=== PATIENT | female | born 1955 | race Caucasian/White ===

== ENCOUNTER 2018-11-30 00:02 | Day surgery (SDC) | payer BC, OTHER ==
[~2018-11-30 00:02] MED LIST: HYDR1TAB94 PO; IBUP600 PO; MORPHINE 11000 MG/10 IV; ONDA4ODT PO; Prilosec Otc20 MG PO; VITAMIN D10000 UNIT PO
== END 2018-11-30 09:35 | disposition home or self-care (01) ==
LOC: ATC 00:02
DX: R42 Dizziness and giddiness (principal)
CPT/HCPCS: 36415; 80400; 82533; 96372; J0834

== ENCOUNTER → 2019-10-02 | Outpatient (CLI) | payer MEDICARE | END | disposition home or self-care (01) | LOC: LAB SHORT 06:15 → OLS 06:15 → LAB FUT 09-20 10:15 → EDSTATUS 09-20 10:15 | DX: N20.2 Calculus of kidney with calculus of ureter (principal) | CPT/HCPCS: 81050 ==

== ENCOUNTER → 2020-08-24 | Outpatient (CLI) | payer MEDICARE, OTHER | END | disposition home or self-care (01) | LOC: LAB SHORT 10:10 → LAB 10:10 | DX: N39.0 Urinary tract infection, site not specified (principal) | CPT/HCPCS: 87086 ==

== ENCOUNTER → 2021-01-21 | Outpatient (CLI) | payer MEDICARE, OTHER | END | disposition home or self-care (01) | LOC: LAB SHORT 09:11 | DX: N39.0 Urinary tract infection, site not specified (principal) | CPT/HCPCS: 87086 ==

== ENCOUNTER 2023-03-23 07:46 | Day surgery (SDC) | payer MEDICARE, OTHER ==
[~2023-03-23] VITALS: Ht 162.6 cm; Wt 104.9 kg
[~2023-03-23 07:46] MED LIST changes: +ARMOUR THYROID90 M1 PO; +Aspir 8181 MG PO; +LIVALO2 MG PO; +PSEUDOEPHEDRINE30 M1 PO
--- NOTE | 2023-03-23 08:41 | NUR ---
03/23/23 0841 Jose Vargas CALL LIGHT WITHIN REACH. TETRACAINE IN LEFT EYE AT 0835 AND JIM GAYLET 0836
[2023-03-23 09:58] VITALS: BP 144/69
--- NOTE | 2023-03-23 10:05 | NUR ---
03/23/23 1005 Jaden Avendano IV REMOVED INTACT. SITE WNL.
== END 2023-03-23 10:10 | disposition home or self-care (01) ==
LOC: ORSCSDS 07:46
PROVIDERS: Student in an Organized Health Care Education/Training Program
PROC: 08RK3JZ Replacement of Left Lens with Synthetic Substitute, Percutaneous Approach (ICD-10-PCS; principal; 2023-03-23 09:30)
DX: E11.36 Type 2 diabetes mellitus with diabetic cataract (principal); H25.12 Age-related nuclear cataract, left eye; J45.909 Unspecified asthma, uncomplicated; R00.0 Tachycardia, unspecified; K21.9 Gastro-esophageal reflux disease without esophagitis; Z86.73 Personal history of transient ischemic attack (TIA), and cerebral infarction without residual deficits; I10 Essential (primary) hypertension; G89.29 Other chronic pain; Z79.899 Other long term (current) drug therapy
CPT/HCPCS: J2250; J3010; J7040; V2632

== ENCOUNTER 2024-07-08 08:53 | Emergency (ER) | payer MEDICARE, OTHER ==
[~2024-07-08] VITALS: Ht 162.6 cm; Wt 99.8 kg
[2024-07-08 10:30] VITALS: BP 148/90
== END 2024-07-08 10:31 | disposition home or self-care (01) ==
LOC: ER 08:53
DX: K59.00 Constipation, unspecified (principal); J45.909 Unspecified asthma, uncomplicated; Z79.899 Other long term (current) drug therapy; Z88.2 Allergy status to sulfonamides; Z88.5 Allergy status to narcotic agent; Z88.1 Allergy status to other antibiotic agents
CPT/HCPCS: 74018; 99284-25

== ENCOUNTER 2024-11-08 23:58 | Inpatient (IN) | payer MEDICARE, OTHER ==
[~2024-11-08] VITALS: Ht 162.6 cm; Wt 103.6 kg
[2024-11-09 01:07] LABS: BASOPHILS ABSOLUTE AUTO 0.01 K/mm3 (0.00-0.23); BASOPHILS PERCENT AUTO 0 % (0-2); EOSINOPHILS ABSOLUTE AUTO 0.01 K/mm3 (0.00-0.68); EOSINOPHILS PERCENT AUTO 0 % (0-6); Hematocrit 41.8 % (33.0-51.0); Hemoglobin 13.5 g/dL (11.5-16.0); IMMATURE GRAN ABSOLUTE AUTO 0.05 K/mm3 (0.00-0.10); IMMATURE GRAN PERCENT AUTO 1 % (0-1); LYMPHOCYTES PERCENT AUTO 6 % (21-46); MONOCYTES ABSOLUTE AUTO 0.39 K/mm3 (0.16-1.47); MONOCYTES PERCENT AUTO 5 % (4-13); Mean Corpuscular HGB 29.1 pg (26.0-34.0); Mean Corpuscular HGB Conc 32.3 g/dL (31.5-36.5); Mean Corpuscular Volume 90 fL (80-100); Mean Platelet Volume 8.9 fL (9.1-12.4); NEUTROPHILS ABSOLUTE AUTO 7.76 K/mm3 (1.96-9.15); NEUTROPHILS PERCENT AUTO 89 % (41-73); Platelet Count 328 K/mm3 (150-400); RDW Coefficient Variation 14.3 % (11.7-14.2); RDW Standard Deviation 47.3 fL (35.1-46.3); Red Blood Cell Count 4.64 M/mm3 (3.80-5.20); White Blood Cell Count 8.72 K/mm3 (4.00-11.30)
[2024-11-09 01:34] LABS: Albumin, Blood 3.8 g/dL (3.4-5.0); Albumin/Globulin Ratio 0.9 (0.8-1.8); Bilirubin, Total 5.2 mg/dL (0.1-1.0); Bun/Creatinine Ratio 23.2 (12.0-20.0); Calcium, Blood 9.2 mg/dL (8.5-10.1); Creatinine, Blood 0.78 mg/dL (0.40-1.00); Globulin, Blood 4.2 g/dL (2.2-4.0); Potassium, Blood 3.7 mmol/L (3.5-5.5)
[2024-11-09 01:41] LABS: Source, Urine Clean Catch
[2024-11-09 01:50] LABS: Appearance, Urine Hazy (Clear); Blood, Urine 2+ (Neg); Color, Urine Amber (P-Yellow); Glucose Qualitative, Urine Neg (Neg); Ketones, Urine Neg (Neg); Leukocyte Esterase, Urine 1+ (Neg); Nitrite, Urine Neg (Neg); Protein, Urine 3+ (Neg); Urobilinogen, Urine 2+ (Normal)
[2024-11-09 02:01] LABS: Bilirubin, Urine 3+ (Neg)
[2024-11-09 02:02] LABS: Red Blood Cells, Urine 0-2 /hpf (0-2); White Blood Cells, Urine 0-2 /hpf (0-5)
[2024-11-09 02:03] LABS: Bacteria Mod /hpf; Squamous Epithelial Cells Many /hpf (Few)
[2024-11-09] MEDS ORDERED: Ondansetron HCl 2 MG / ML 2ML Vial IV ONE (03:00)
[2024-11-09] MEDS ORDERED: NS 1,000 ML IV SCH (03:00)
[2024-11-09] MEDS ORDERED: HYDROmorphone HCl/Pf 1MG SYR IV ONE (03:00)
[2024-11-09 03:37] LABS: Cholesterol 315 mg/dL (50-200); Triglycerides 222 mg/dL (30-160)
[2024-11-09 03:38] LABS: Acetaminophen, Random <2.0 ug/mL (10.0-30.0)
[2024-11-09] MEDS ORDERED: Ondansetron HCl 2 MG / ML 2ML Vial IV PRN (04:10)
[2024-11-09] MEDS ORDERED: Lactated Ringer's 1,000 ML IV SCH (04:27)
[2024-11-09] MEDS ORDERED: CefTRIAXone Sodium 2,000 MG in NS 100 ML IV SCH (04:28)
[2024-11-09] MEDS ORDERED: MetroNIDAZOLE 500MG/NS 100 ml 100 ML IV SCH (04:30)
[2024-11-09] MEDS ORDERED: HYDROmorphone HCl/Pf 1MG SYR IV PRN ×2 (05:55→14:55)
[2024-11-09 08:47] LABS: International Normalized Ratio 1.07; Prothrombin Time Results 11.4 Sec (9.7-11.5)
[2024-11-09 08:54] LABS: Bilirubin, Direct 3.7 mg/dL (0.0-0.3); Bilirubin, Indirect 1.1 mg/dL (0.1-0.7); Bilirubin, Total 4.8 mg/dL (0.1-1.0)
[2024-11-09] MEDS ORDERED: Enoxaparin 40 MG/0.4 ML SYR SC SCH (09:00)
[2024-11-09] MEDS ORDERED: Lactobacil 2-S.Thermo-Bifido 1 1 Cap PO SCH (09:00)
[2024-11-09] MEDS ORDERED: Docusate Sodium 100 MG Cap PO SCH (09:00)
[2024-11-09 14:18] VITALS: BP 137/67
[2024-11-09] MEDS ORDERED: Misc. Capsule PO PRN (18:50)
[2024-11-09] MEDS ORDERED: Magnesium Oxide 400 MG Tab PO SCH (19:00)
[2024-11-09 19:21] VITALS: BP 152/69
--- NOTE | 2024-11-09 19:51 | NUR ---
SHIFT SUMMARY PT A&OX4. PT ADMITTED DUE TO PANCREATITIS. PT REPORTS PAIN, PAIN MANAGED PER EMAR FOR CHRONIC BACK PAIN AND ABD PAIN. PT ON 2 L OF O2 VIA N/C, PT USES CPAP AT NIGHT. PT DESATS TO 86%. DR. SANTORO. PT HOME MED WENT TO PHARMACY, NOW LOCKED IN DRAWER. PT HAS LR RUNNING AT 100 ML/HR. PT INDEPENDENT IN ROOM. DR. CASTANEDA UPDATED DIET TO CLEAR LIQUIDS, PT REPORTS NO NAUSEA.PT IS Q6 BLOOD SUGAR. NOTIFIED NIGHT RN, PT NEEDS DNR BRACELET. PT IN BED, BED IN LOWEST POSITION, CALL LIGHT IN REACH.
--- NOTE | 2024-11-09 22:59 | NUR ---
HOSPITALIST CONTACT PT ON CONT BIOX; O2 SATS WNL ON 2LPM. HR DROPPING DOWN INTO THE 30'S AND 40'S. MANUAL CHECK OF HR CONSISTENT WITH BIOX READING. PULS SLIGHTLY IRREGULAR AND ROSEANN WITH MANUAL CHECK. PT DENIES DIZZINESS, CP, CONFUSION--PT STATES HER HR FEELS "IRRATIC" CALL TO HOSPITALIST AT APROX 2130. UPDATED ON NEW PT CONCERN. NEW ORDER FOR TELE AT THIS TIME. PER TELE READING PT SINUS ROSEANN AT 55.
[2024-11-09] MEDS ORDERED: NS 250 ML IV PRN (23:05)
[2024-11-10 00:20] VITALS: BP 143/65
[2024-11-10 04:41] VITALS: BP 138/64
[2024-11-10 05:28] LABS: BASOPHILS ABSOLUTE AUTO 0.01 K/mm3 (0.00-0.23); BASOPHILS PERCENT AUTO 0 % (0-2); EOSINOPHILS PERCENT AUTO 4 % (0-6); Hematocrit 33.4 % (33.0-51.0); Hemoglobin 10.9 g/dL (11.5-16.0); IMMATURE GRAN ABSOLUTE AUTO 0.04 K/mm3 (0.00-0.10); IMMATURE GRAN PERCENT AUTO 1 % (0-1); LYMPHOCYTES ABSOLUTE AUTO 1.08 K/mm3 (0.84-5.20); LYMPHOCYTES PERCENT AUTO 20 % (21-46); MONOCYTES ABSOLUTE AUTO 0.32 K/mm3 (0.16-1.47); MONOCYTES PERCENT AUTO 6 % (4-13); Mean Corpuscular HGB 30.2 pg (26.0-34.0); Mean Corpuscular HGB Conc 32.6 g/dL (31.5-36.5); Mean Corpuscular Volume 93 fL (80-100); Mean Platelet Volume 9.9 fL (9.1-12.4); NEUTROPHILS ABSOLUTE AUTO 3.82 K/mm3 (1.96-9.15); NEUTROPHILS PERCENT AUTO 70 % (41-73); Platelet Count 286 K/mm3 (150-400); RDW Coefficient Variation 14.8 % (11.7-14.2); RDW Standard Deviation 50.6 fL (35.1-46.3); Red Blood Cell Count 3.61 M/mm3 (3.80-5.20); White Blood Cell Count 5.47 K/mm3 (4.00-11.30)
[2024-11-10 05:51] LABS: Albumin, Blood 2.8 g/dL (3.4-5.0); Albumin/Globulin Ratio 0.8 (0.8-1.8); Bilirubin, Total 3.4 mg/dL (0.1-1.0); Bun/Creatinine Ratio 26.1 (12.0-20.0); C-REACTIVE PROTEIN, EXT RANGE 5.3 mg/dL (0.000-0.300); Calcium, Blood 8.4 mg/dL (8.5-10.1); Creatinine, Blood 0.61 mg/dL (0.40-1.00); Globulin, Blood 3.5 g/dL (2.2-4.0); Magnesium, Blood 2.2 mg/dL (1.6-2.4); Phosphorus, Blood 2.3 mg/dL (2.5-4.9); Potassium, Blood 3.7 mmol/L (3.5-5.5); Total Protein, Blood 6.3 g/dL (6.4-8.2)
--- NOTE | 2024-11-10 07:45 | NUR ---
SERVICE DISMANTLER SUMMARY SEE PREVIOUS NURSE NOTE HOSTPITALIST CONTACT FOR NEW TELE ORDER PT A/OX4. ABLE TO MAKE NEEDS KNOWN. PT ANXIOUS OVERNIGHT--MULTIPLE DISCUSSIONS ABOUT PT ADVANCE DIRECTIVE AND POLST STATUS. PT WISHES ARE TO BE DNR STATUS. EDUCATED PT WHAT EXACTLY DNR STATUS MEANS AND ASSURED PT SHE IS A DNR STATUS. PRINTED OFF DIGITAL COPY OF POLST AND REVIEWED WITH THE PT. DNR WRIST BAND IN PLACE. PT PLACED ON TELE. HAD FOUR CALLS FROM BINDING CEMENTER FRENCH CORD IRVIN MARTINEZ. PT HAD TWO EPISODES OF BRIEF HR IN THE 30'S AND TWO 2+ SECOND PAUSES. CALLED DR SANCHEZ TO INFORM. PT IS ASYMPTOMATIC. DR SANCHEZ STATED HE REIVIEW PT'S CHART AND PLACE ANY NEEDED ORDERS. NO NEW ORDERS PLACED AT END OF SHIFT. PT ORIENTED TO ROOM AND CALL LIGHT. PT CALLS APPROPRIATELY. REGULAR INTERVAL ROUNDING COMPLETE. BEDSIDE SHIFT REPORT GIVEN TO ONCOMING NURSE.
[2024-11-10 08:13] VITALS: BP 133/60
[2024-11-10] MEDS ORDERED: Potassium Phos/Sodium Phos 250 MG PACK PO ONE (09:00)
[2024-11-10] MEDS ORDERED: Polyethylene Glycol 3350 17 gm PO PRN (12:00)
[2024-11-10 15:30] VITALS: BP 141/65
--- NOTE | 2024-11-10 18:09 | NUR ---
NOTE TELE REPORTED PT DROPPING DOWN TO 40'S, 30'S HR WITH [address] CASTANEDA NOTIFIED, NO NEW ORDERS AT THIS TIME. RN CAME TO ASSESS PT AND PT REPORTED "SLEEPING AND NO SYMPTOMS."
[2024-11-10 19:39] VITALS: BP 144/66
--- NOTE | 2024-11-10 19:43 | NUR ---
SHIFT SUMMARY PT A&OX4. PT ADMITTED DUE TO PANCREATITIS. PT REPORTS PAIN, PT REPORTED " GIVING HERSELF A MORPHINE BOLUS X1 TODAY." PT ON RA. SPO2 IS 99%. PT INDEPENDENT IN ROOM. BLOOD SUGARS D/C. PT RECEIVED IV ANTIBIOTIC. PT STATES "TOLERATE FULL LIQUID DIET." PT REPORTS NO NAUSEA. PT REPORTS NO CHEST PAIN OR SOB. PT ON TELE. PT IN BED, BED IN LOWEST POSITION, CALL LIGHT IN REACH.
[2024-11-11 00:05] VITALS: BP 179/78
[2024-11-11 04:30] VITALS: BP 153/77
--- NOTE | 2024-11-11 05:28 | NUR ---
RESTAURANT RECRUITER SUMMARY PT A/OX4. ABLE TO MAKE NEEDS KNOWN. COOPERATIVE WITH CARE. NO ACUTE EVENTS. PT REMIANS ON TELE WITH HR IN 60'S AND OCCATIONAL BRIEF BRADYCARDIC EPISODES IN THE 40'S AND FIRST DEG BLOCK. PT IS ASYMPTOMATIC. PT ON FULL LIQUID DIET AND TOLERATING WELL; NO COMPLAINS OF NAUSEA OR PAIN. PT STATES SHE FEELS READY TO ADVANCE DIET. CALL LIGHT ACCESSIBLE. CARE WILL CONTINUE UNTIL REPORT GIVEN TO ONCOMING NURSE.
[2024-11-11 06:29] LABS: BASOPHILS ABSOLUTE AUTO 0.02 K/mm3 (0.00-0.23); BASOPHILS PERCENT AUTO 0 % (0-2); EOSINOPHILS ABSOLUTE AUTO 0.28 K/mm3 (0.00-0.68); EOSINOPHILS PERCENT AUTO 5 % (0-6); Hematocrit 35.2 % (33.0-51.0); IMMATURE GRAN ABSOLUTE AUTO 0.05 K/mm3 (0.00-0.10); IMMATURE GRAN PERCENT AUTO 1 % (0-1); LYMPHOCYTES ABSOLUTE AUTO 1.32 K/mm3 (0.84-5.20); LYMPHOCYTES PERCENT AUTO 24 % (21-46); MONOCYTES ABSOLUTE AUTO 0.46 K/mm3 (0.16-1.47); MONOCYTES PERCENT AUTO 8 % (4-13); Mean Corpuscular HGB 29.6 pg (26.0-34.0); Mean Corpuscular HGB Conc 31.3 g/dL (31.5-36.5); Mean Corpuscular Volume 95 fL (80-100); Mean Platelet Volume 9.4 fL (9.1-12.4); NEUTROPHILS ABSOLUTE AUTO 3.45 K/mm3 (1.96-9.15); NEUTROPHILS PERCENT AUTO 62 % (41-73); Platelet Count 258 K/mm3 (150-400); RDW Coefficient Variation 14.8 % (11.7-14.2); RDW Standard Deviation 51.6 fL (35.1-46.3); Red Blood Cell Count 3.72 M/mm3 (3.80-5.20); White Blood Cell Count 5.58 K/mm3 (4.00-11.30)
[2024-11-11 06:52] LABS: Albumin, Blood 2.8 g/dL (3.4-5.0); Albumin/Globulin Ratio 0.8 (0.8-1.8); Bilirubin, Total 1.3 mg/dL (0.1-1.0); Bun/Creatinine Ratio 17.4 (12.0-20.0); Calcium, Blood 8.8 mg/dL (8.5-10.1); Creatinine, Blood 0.63 mg/dL (0.40-1.00); Globulin, Blood 3.4 g/dL (2.2-4.0); Magnesium, Blood 1.9 mg/dL (1.6-2.4); Phosphorus, Blood 3.4 mg/dL (2.5-4.9); Potassium, Blood 3.7 mmol/L (3.5-5.5); Total Protein, Blood 6.2 g/dL (6.4-8.2)
[2024-11-11 07:26] VITALS: BP 149/64
[2024-11-11] MEDS ORDERED: Potassium Chloride 20 MEQ/15 ML UDC PO ONE (08:00)
--- NOTE | 2024-11-11 09:37 | NUR ---
Patient requested to be disconnected from IV so she can get up and walk around. Disconnected the IV
[2024-11-11 11:34] VITALS: BP 166/91
[2024-11-11 14:36] VITALS: BP 147/73
[2024-11-11 19:17] VITALS: BP 169/77
[2024-11-11 19:18] LABS: HEPATITIS A ANTIBODY, IGM Negative (Negative); HEPATITIS B CORE ANTIBODY, IGM Negative (Negative); HEPATITIS B SURFACE ANTIGEN Negative (Negative); HEPATITIS C AB CIA INTERP Negative (Negative); HEPATITIS C ANTIBODY CIA INDEX 0.07 IV
--- NOTE | 2024-11-11 19:33 | NUR ---
SHIFT SUMMARY: PT A&O X4. PLEASANT AND COOPERATIVE WITH CARE. INDEPENDENT IN ROOM. USES CPAP WITH SLEEP. RECEIVED SEVERAL CALL FROM TELE THIS SHIFT OF ROSEANN IN LOW TO MID 40'S; MOSTLY WHILE PT IS SLEEPING. PT STATED NEEDING OF BOWEL CARE THIS AM. MIRALAX AND PRUNE JUICE PROVIDED WITH GOOD SUCCESS. CALL LIGHT IN REACH. BED IN LOWEST POSITION.
[2024-11-12 00:14] VITALS: BP 151/67
[2024-11-12 04:02] VITALS: BP 143/67
[2024-11-12] MEDS ORDERED: Omeprazole 20 MG CapCR PO SCH (06:00)
[2024-11-12] MEDS ORDERED: CefTRIAXone Sodium 1,000 MG in NS 100 ML IV SCH (06:00)
[2024-11-12 07:35] VITALS: BP 140/64
[2024-11-12] MEDS ORDERED: ONDA4 PO (10:12)
[2024-11-12] MEDS ORDERED: Diflucan150 MG PO (10:13)
[2024-11-12] MEDS ORDERED: VISBIOME 112.51 EACH PO (10:14)
--- NOTE | 2024-11-12 10:59 | NUR ---
DISCHARGE REVIEWED WITH PT SHE VERALIZED UNDERSTANDING MEDS AND INST. IV PULLED BY AIDE. TELE REMOVED BY AIDE. PT TODRESS SELF. PEND TO BE HERE.
[2024-11-12 12:08] LABS: TRANSFERRIN 238 mg/dL (200-360)
[2024-11-12 12:10] LABS: ALPHA-1-ANTITRYPSIN 136 mg/dL (90-200)
--- NOTE | 2024-11-12 12:11 | NUR ---
PT WHEELED TO DOOR BY AIDE [id number]
[2024-11-12 20:05] LABS: HEPATITIS A ANTIBODY, IGM Negative (Negative); HEPATITIS B CORE ANTIBODY, IGM Negative (Negative); HEPATITIS B SURFACE ANTIGEN Negative (Negative); HEPATITIS C AB CIA INTERP Negative (Negative); HEPATITIS C ANTIBODY CIA INDEX 0.05 IV
== END 2024-11-12 12:08 | disposition home or self-care (01) | DRG 393 ==
LOC: ER 23:58 → ERHOLD 11-09 04:02 → MEDS 11-09 14:14
PROVIDERS: Emergency Medicine; Family Medicine; ADMIT Student in an Organized Health Care Education/Training Program
PROC: 5A09357 Assistance with Respiratory Ventilation, Less than 24 Consecutive Hours, Continuous Positive Airway Pressure (ICD-10-PCS; principal; 2024-11-09)
DX: K91.89 Other postprocedural complications and disorders of digestive system (principal); K85.10 Biliary acute pancreatitis without necrosis or infection; B17.9 Acute viral hepatitis, unspecified; Z66 Do not resuscitate; M54.9 Dorsalgia, unspecified; G89.29 Other chronic pain; J45.909 Unspecified asthma, uncomplicated; M41.9 Scoliosis, unspecified; E11.9 Type 2 diabetes mellitus without complications; E80.6 Other disorders of bilirubin metabolism; K21.9 Gastro-esophageal reflux disease without esophagitis; K22.4 Dyskinesia of esophagus; E86.0 Dehydration; Z90.49 Acquired absence of other specified parts of digestive tract; Z90.710 Acquired absence of both cervix and uterus; Z98.49 Cataract extraction status, unspecified eye; Z88.2 Allergy status to sulfonamides; Z88.1 Allergy status to other antibiotic agents; Z88.8 Allergy status to other drugs, medicaments and biological substances; Z79.899 Other long term (current) drug therapy; Z79.890 Hormone replacement therapy; Y83.8 Other surgical procedures as the cause of abnormal reaction of the patient, or of later complication, without mention of misadventure at the time of the procedure
CPT/HCPCS: 36415; 71045; 74177; 76705; 80053; 80074; 81001; 82103; 82247; 82248; 82465; 82728; 82947; 83690; 83735; 84100; 84466; 84478; 84484; 85025; 85610; 86140; 87086; 93005; 93010; 94760; 94762; 96361; 96374-59; 96375; 99285-25; A9270; G0480; J0696; J1171; J1650; J2405; J7030; J7050; J7120; Q9967

== ENCOUNTER 2025-02-28 08:38 | Day surgery (SDC) | payer MEDICARE, OTHER ==
[~2025-02-28] VITALS: Ht 162.6 cm; Wt 103.1 kg
[~2025-02-28 08:38] MED LIST changes: +Diflucan150 MG PO; +MAG GLYCINATE100 MG PO; +MORPHINE; +ONDA4 PO; +PRAV20 PO; +SUDAFED PO; +THYR60 PO; +VISBIOME 112.51 EACH PO; +XARELTO1 EAC1 PO; +XARELTO20 MG PO
[2025-02-28 09:09] VITALS: BP 172/95
[2025-02-28] MEDS ORDERED: Heparin Sodium 1000 Units/ML 10ML MDV ONE (09:34)
[2025-02-28] MEDS ORDERED: Verapamil HCL 2.5 MG/ML 2ML Injection ONE (09:34)
[2025-02-28] MEDS ORDERED: NS 250 ML IV ONE (09:35)
[2025-02-28] MEDS ORDERED: Nitroglycerin 2 MG/20 ML BTL ONE (09:35)
[2025-02-28] MEDS ORDERED: NS 1,000 ML IV ONE ×2 (09:35)
[2025-02-28] MEDS ORDERED: FentaNYL Citrate 50 MCG/ML 2 ML Injection ONE (10:01)
[2025-02-28] MEDS ORDERED: Midazolam HCl 1MG / ML 2ML Vial ONE (10:01)
[2025-02-28 11:00] VITALS: BP 132/84
[2025-02-28 11:15] VITALS: BP 125/114
[2025-02-28 11:30] VITALS: BP 107/82
[2025-02-28 12:00] VITALS: BP 113/68
[2025-02-28 12:30] VITALS: BP 118/67
--- NOTE | 2025-02-28 12:52 | NUR ---
RETURNED EARLIER FROM [facility] NEUROPSYCHOLOGIST, SITE INTACT, NO CONCERNS, GOOD PULSES DISTAL/PROXIMAL, VSS. ATE, DRANK, CLARIFIED D/C MEDICATIONS PLAN WITH DR. ORELLANA, AIR REMOVED FROM TR BAND AND CLOTH DOT PLACED LATER, TR BAND REMOVED. UPDATED D/C INSTRUCTIONS, D/C MEDICATIONS, D/C F/U APPOINTMENT, PATIENT AND FAMILY VERBALIZED INSTRUCTIONS, CK (DR. ORELLANA) AT BEDSIDE AT PRESENT TALKING WITH PATIENT/FAMILY, IV REMOVED, PENDING GETTING DRESSED AND GOING HOME OTHERWISE.
--- NOTE | 2025-02-28 13:11 | NUR ---
PATIENT DRESSED, LEFT AT 1300 VIA WHEELCHAIR, BELONGINGS RETURNED, AT 1310.
== END 2025-02-28 13:10 | disposition home or self-care (01) ==
LOC: MHTC 08:38
DX: R94.39 Abnormal result of other cardiovascular function study (principal); R06.09 Other forms of dyspnea; I10 Essential (primary) hypertension; E03.9 Hypothyroidism, unspecified; J45.909 Unspecified asthma, uncomplicated; E11.9 Type 2 diabetes mellitus without complications; K21.9 Gastro-esophageal reflux disease without esophagitis; G47.33 Obstructive sleep apnea (adult) (pediatric); Z79.899 Other long term (current) drug therapy; Z88.1 Allergy status to other antibiotic agents; Z88.5 Allergy status to narcotic agent; Z88.2 Allergy status to sulfonamides; Z95.0 Presence of cardiac pacemaker
CPT/HCPCS: 76937; 93005; 93010; 93458; 99152; C1769; C1887; C1894; J1644; J2250; J3010; J7030; J7050; Q9967

== ENCOUNTER → 2025-04-12 | Outpatient (CLI) | payer MEDICARE, OTHER ==
[2025-04-12 14:06] LABS: BASOPHILS ABSOLUTE AUTO 0.02 K/mm3 (0.00-0.23); BASOPHILS PERCENT AUTO 0 % (0-2); EOSINOPHILS ABSOLUTE AUTO 0.13 K/mm3 (0.00-0.68); EOSINOPHILS PERCENT AUTO 1 % (0-6); Hematocrit 39.2 % (33.0-51.0); Hemoglobin 12.9 g/dL (11.5-16.0); IMMATURE GRAN ABSOLUTE AUTO 0.04 K/mm3 (0.00-0.10); IMMATURE GRAN PERCENT AUTO 0 % (0-1); LYMPHOCYTES ABSOLUTE AUTO 1.51 K/mm3 (0.84-5.20); LYMPHOCYTES PERCENT AUTO 14 % (21-46); MONOCYTES ABSOLUTE AUTO 0.48 K/mm3 (0.16-1.47); MONOCYTES PERCENT AUTO 5 % (4-13); Mean Corpuscular HGB Conc 32.9 g/dL (31.5-36.5); Mean Corpuscular Volume 88 fL (80-100); NEUTROPHILS ABSOLUTE AUTO 8.30 K/mm3 (1.96-9.15); NEUTROPHILS PERCENT AUTO 79 % (41-73); NRBC ABSOLUTE 0.00 K/mm3 (0.00-0.02); NRBC Auto 0.0 /100 WBC (0.0-0.2); Platelet Count 338 K/mm3 (150-400); RDW Coefficient Variation 13.7 % (11.7-14.2); RDW Standard Deviation 43.9 fL (35.1-46.3)
[2025-04-12 14:14] LABS: Alanine Aminotransfer (ALT/SGP 22.0 U/L (12-78); Albumin, Blood 3.7 g/dL (3.4-5.0); Albumin/Globulin Ratio 0.9 (0.8-1.8); Anion Gap 10.0 mmol/L (3-11); Aspartate Aminotrans (AST/SGOT 17.0 U/L (12-37); Bilirubin, Total 0.6 mg/dL (0.1-1.0); Blood Urea Nitrogen 15.0 mg/dL (8-24); CO2, Blood 31.0 mmol/L (21-32); Calcium, Blood 9.3 mg/dL (8.5-10.1); Chloride, Blood 102.0 mmol/L (98-108); Creatinine, Blood 0.71 mg/dL (0.40-1.00); Globulin, Blood 4.2 g/dL (2.2-4.0); Glucose, Blood 145.0 mg/dL (70-99); Potassium, Blood 4.1 mmol/L (3.5-5.5); Sodium, Blood 139.0 mmol/L (136-145); Total Protein, Blood 7.9 g/dL (6.4-8.2)
== END ==
LOC: LAB SHORT 14:00 → LAB 14:00
PROVIDERS: Physician Assistant
DX: R10.9 Unspecified abdominal pain (principal)
CPT/HCPCS: 80053; 83690; 85025